=== PATIENT | male | born 1975 | race Caucasian/White ===

== ENCOUNTER 2017-12-02 12:05 | Emergency (ER) | payer OTHER ==
[~2017-12-02] VITALS: Ht 170.2 cm; Wt 93.4 kg
== END 2017-12-02 18:56 | disposition home or self-care (01) ==
LOC: ER 12:05
DX: K52.89 Other specified noninfective gastroenteritis and colitis (principal)

== ENCOUNTER 2018-02-01 11:40 | Emergency (ER) | payer OTHER ==
[~2018-02-01] VITALS: Ht 170.2 cm; Wt 90.7 kg
[2018-02-01] MEDS ORDERED: SKELAXIN800 MG PO (20:30)
[2018-02-01] MEDS ORDERED: CELEBREX200MG PO (20:30)
== END 2018-02-01 20:43 | disposition home or self-care (01) ==
LOC: ER 11:40
DX: M62.830 Muscle spasm of back (principal); E86.0 Dehydration

== ENCOUNTER 2018-02-13 10:02 | Emergency (ER) | payer OTHER ==
[~2018-02-13] VITALS: Ht 170.2 cm; Wt 89.8 kg
[~2018-02-13 10:02] MED LIST: CELEBREX200MG PO; SKELAXIN800 MG PO
[2018-02-13] MEDS ORDERED: NORFLEX100MG PO (13:11)
[2018-02-13] MEDS ORDERED: KETO10TA2 PO (13:11)
== END 2018-02-13 14:27 | disposition home or self-care (01) ==
LOC: ER 10:02
DX: R10.31 Right lower quadrant pain (principal); M54.89 Other dorsalgia

== ENCOUNTER 2024-03-11 14:55 | Inpatient (IN) | payer OTHER ==
[~2024-03-11] VITALS: Ht 170.2 cm; Wt 93.9 kg
[~2024-03-11 14:55] MED LIST changes: +KETO10TA2 PO; +NORFLEX100MG PO
--- NOTE | 2024-03-11 16:22 | NUR ---
SE RECIEB MASCULINO ALERTA Y ORIENTADO X3 CUAL REFIERE JAZLYN ARDOR AL ORINAR, DOLOR DE ESPALDA BAJA. ADEMA DOLOR EN PARTE SUPERIOR DE ESPALDA QUE IRRADIA A PARTE FRONTAL LADO IZQ QUE CORRE POR TODO EL BRAZO. SE BE S/V Y SE UBICA PRESENTA RESULTADOS DE LAB DE [facility] QUE PRESENTA WBC:21
[2024-03-11] MEDS ORDERED: 0.9 % SODIUM CHLORIDE 1,000 ML IV ONE (16:45)
[2024-03-11] MEDS ORDERED: CEFTRIAXONE SODIUM 2,000 MG VIAL IV ONE (16:45)
[2024-03-11] MEDS ORDERED: KETOROLAC TROMETHAMINE 30 MG VIAL IV ONE (17:00)
[2024-03-11] MEDS ORDERED: TAMSULOSIN HCL 0.4 MG CAP PO ONE (17:00)
--- NOTE | 2024-03-11 17:07 | NUR ---
SE ORIENTA PTE SOBRE TRATAMIENTO MEDICO A REALIZAR. SE CANALIZA VENA Y SE BE MUESTRAS DE LAB BAJO MEDIDAS ASEPTICAS. SE ADMINISTRA MEDICAMENTO Y SE COMIENZA TRATAMIENTO CON IV FLUIDS POR ORDEN MEDICA. PENDIENTE CT
[2024-03-11 17:27] LABS: HEMATOCRIT 42.7 % (39.0-48.0); HEMOGLOBIN 14.5 g/dL (13-16.00); MEAN CELL VOLUME 88.2 fL (80.0-100.00); MEAN CORPUSCULAR HGB CONC 34.1 g/dl (32.0-36.0); PLATELET COUNT 191 K/uL (150-450); RED BLOOD COUNT 4.84 M/uL (4.00-6.00); RED CELL DISTRIBUTION WIDTH 13.4 % (11.5-14.5)
[2024-03-11 17:40] LABS: INR 1.09; PARTIAL THROMBOPLASTIN TIME 27.9 SECONDS (22.0-34.0); PROTHROMBIN TIME 11.8 SECONDS (9.0-11.5)
[2024-03-11 17:46] LABS: BILIRUBIN TOTAL 2.5 mg/dL (0.3-1.2); CALCIUM 8.9 mg/dL (8.5-10.1); CREATININE SERUM 0.95 mg/dL (0.70-1.30); GFR 83.92; GLOBULINA 2.9 G/DL (2.4-3.5); POTASSIUM 4.15 mEq/L (3.5-5.1); TOTAL PROTEIN 6.9 gm/dL (6.4-8.2)
[2024-03-11 18:28] LABS: URINE APPEARANCE Clear; URINE BILIRRUBIN Small (NEGATIVE); URINE BLOOD Negative; URINE COLOR Dark Yellow; URINE GLUCOSE Negative (NEGATIVE); URINE KETONE 15 (NEGATIVE); URINE LEUKOCYTE Moderate; URINE NITRATE Positive; URINE PROTEIN 30 (NEGATIVE)
[2024-03-11 18:33] LABS: URINE BACTERIA 27.7 uL (0.0-1933); URINE EPITHELIAL CELLS 8.6 uL (0.0-38.8); URINE RBC 9.4 uL (0.0-20.8); URINE WBC 290.9 uL (0.0-23.2)
[2024-03-11 19:20] LABS: ALBUMIN 3.9 gm/dL (3.4-5.0); BILIRUBIN TOTAL 2.57 mg/dL (0.3-1.2); BILIRUBIN,CONJUGATED 0.44 mg/dL (0.0-0.2); BILIRUBIN,UNCONJUGATED 2.13 mg/dL (0.0-0.6); TOTAL PROTEIN 6.9 gm/dL (6.4-8.2)
[2024-03-11] MEDS ORDERED: KETOROLAC TROMETHAMINE 15 MG VIAL IU ONE (21:45)
[2024-03-11] MEDS ORDERED: 0.9 % SODIUM CHLORIDE 1,000 ML IV SCH (21:45)
[2024-03-11] MEDS ORDERED: ACETAMINOPHEN 500 MG GEL..CAP PO PRN (21:45)
[2024-03-11] MEDS ORDERED: MEPERIDINE HCL/PF 25 MG/ML VIAL IM ONE (21:45)
[2024-03-11] MEDS ORDERED: MEPERIDINE HCL/PF 25 MG/ML VIAL IM PRN (21:45)
[2024-03-11 22:19] VITALS: BP 129/73
[2024-03-11 23:39] VITALS: BP 100/64; O2SAT 100
[2024-03-12 04:20] VITALS: BP 104/67
[2024-03-12] MEDS ORDERED: TAMSULOSIN HCL 0.4 MG CAP PO SCH (09:00)
[2024-03-12] MEDS ORDERED: levoFLOXacin IN DEXTROSE 5 % 150 ML IV SCH (09:00)
[2024-03-12] MEDS ORDERED: FAMOTIDINE/PF 20 MG in 0.9 % SODIUM CHLORIDE 8 ML IV PUSH SCH (09:00)
[2024-03-12 09:58] VITALS: BP 110/68; O2SAT 99
[2024-03-12] MEDS ORDERED: CEFTRIAXONE SODIUM 2,000 MG VIAL IV SCH (17:00)
[2024-03-12 18:50] VITALS: BP 112/68; O2SAT 98
[2024-03-12 23:38] LABS: ALBUMIN 3.2 gm/dL (3.4-5.0); BILIRUBIN TOTAL 0.61 mg/dL (0.3-1.2); BILIRUBIN,CONJUGATED 0.13 mg/dL (0.0-0.2); BILIRUBIN,UNCONJUGATED 0.48 mg/dL (0.0-0.6); CALCIUM 8.4 mg/dL (8.5-10.1); CREATININE SERUM 0.81 mg/dL (0.70-1.30); GFR 100.87; GLOBULINA 2.8 G/DL (2.4-3.5); POTASSIUM 4.52 mEq/L (3.5-5.1)
[2024-03-13 02:11] VITALS: BP 97/60
[2024-03-13 05:13] LABS: ALBUMIN 3.1 gm/dL (3.4-5.0); BILIRUBIN TOTAL 0.85 mg/dL (0.3-1.2); CALCIUM 8.7 mg/dL (8.5-10.1); CREATININE SERUM 0.88 mg/dL (0.70-1.30); GFR 91.66; GLOBULINA 2.6 G/DL (2.4-3.5); MAGNESIUM 2.3 mg/dL (1.8-2.4); PHOSPHOROUS 3.8 mg/dL (2.5-4.9); POTASSIUM 5.01 mEq/L (3.5-5.1); TOTAL PROTEIN 5.7 gm/dL (6.4-8.2)
[2024-03-13 05:23] LABS: C-REACTIVE PROTEIN 9.49 MG/DL (0.00-0.29)
[2024-03-13 05:25] LABS: HEMATOCRIT 39.3 % (39.0-48.0); HEMOGLOBIN 13.3 g/dL (13-16.00); MEAN CELL VOLUME 89.9 fL (80.0-100.00); MEAN CORPUSCULAR HEMOGLOBIN 30.4 pg (27.00-32.0); MEAN CORPUSCULAR HGB CONC 33.8 g/dl (32.0-36.0); PLATELET COUNT 163 K/uL (150-450); RED BLOOD COUNT 4.38 M/uL (4.00-6.00); RED CELL DISTRIBUTION WIDTH 12.7 % (11.5-14.5)
[2024-03-13 09:15] VITALS: BP 112/69; O2SAT 98
[2024-03-13 15:15] LABS: PH,URINE 6.5 (5.0-8.0); URINE APPEARANCE Clear; URINE BILIRRUBIN Negative (NEGATIVE); URINE BLOOD Negative; URINE COLOR Yellow; URINE GLUCOSE Negative (NEGATIVE); URINE KETONE Negative (NEGATIVE); URINE LEUKOCYTE Trace; URINE NITRATE Negative; URINE PROTEIN Negative (NEGATIVE)
[2024-03-13 15:17] LABS: URINE BACTERIA 2.5 uL (0.0-1933); URINE EPITHELIAL CELLS 0.7 uL (0.0-38.8); URINE RBC 0.4 uL (0.0-20.8)
[2024-03-13 17:33] VITALS: BP 137/85
[2024-03-14 01:53] VITALS: BP 147/92
[2024-03-14 09:18] VITALS: BP 113/70; O2SAT 97
[2024-03-14 09:20] VITALS: BP 113/70; O2SAT 97
[2024-03-14] MEDS ORDERED: TAMS0.4C PO (11:18)
[2024-03-14] MEDS ORDERED: LEVOFLOXACIN750 MG PO (11:19)
[2024-03-14] MEDS ORDERED: PROSCAR5 MG PO (11:20)
[2024-03-14] MEDS ORDERED: PREVACID30 MG PO (11:20)
[2024-03-14] MEDS ORDERED: PAIN RELIEVER500 M2 PO (12:39)
== END 2024-03-14 12:37 | disposition home or self-care (01) | DRG 872 ==
LOC: ER 14:57 → MEDJ 22:35
PROVIDERS: Internal Medicine Infectious Disease; Nurse Practitioner Family; ADMIT Internal Medicine; ATTEND Internal Medicine
PROC: BW21ZZZ Computerized Tomography (CT Scan) of Abdomen and Pelvis (ICD-10-PCS; principal; 2024-03-11)
PROC: BW40ZZZ Ultrasonography of Abdomen (ICD-10-PCS; 2024-03-11)
DX: A41.9 Sepsis, unspecified organism (principal); N39.0 Urinary tract infection, site not specified; N41.0 Acute prostatitis; R65.10 Systemic inflammatory response syndrome (SIRS) of non-infectious origin without acute organ dysfunction

== ENCOUNTER 2024-03-29 08:38 | Outpatient (CLI) | payer OTHER ==
[~2024-03-29 08:38] MED LIST changes: +LEVOFLOXACIN750 MG PO; +PAIN RELIEVER500 M2 PO; +PREVACID30 MG PO; +PROSCAR5 MG PO; +TAMS0.4C PO
== END 2024-03-29 08:49 | disposition home or self-care (01) ==
LOC: SONOGRAMA 08:38
PROVIDERS: ATTEND Internal Medicine
DX: N41.0 Acute prostatitis (principal)

== ENCOUNTER 2024-04-24 14:09 | Outpatient (CLI) | payer OTHER | END 2024-04-24 14:22 | disposition home or self-care (01) | LOC: MRI 14:09 | PROVIDERS: ATTEND Internal Medicine | DX: M54.59 Other low back pain (principal); M51.27 Other intervertebral disc displacement, lumbosacral region | CPT/HCPCS: 72148 ==